=== PATIENT | male | born 1955 | race Two or more races ===

== ENCOUNTER 2017-10-04 16:03 | Inpatient (IN) | payer OTHER ==
[~2017-10-04] VITALS: Ht 165.1 cm; Wt 97.5 kg
[2017-10-04] MEDS ORDERED: SODIUM CHLORIDE 0.9% 1,000ML IVBOLUS ONE (17:00)
[2017-10-04] MEDS ORDERED: ASPIRIN 81 MG TABLET CHEW PO ONE (17:00)
[2017-10-04] MEDS ORDERED: MORPHINE SULFATE 4 MG/ML, 1ML IVPush PRN (17:00)
[2017-10-04] MEDS ORDERED: SODIUM CHLORIDE FLUSH 10ML SYR IVF ONE (17:00)
[2017-10-04] MEDS ORDERED: NITROGLYCERIN SINGLE TAB 0.4 MG SL ONE (17:10)
[2017-10-04] MEDS ORDERED: morphine SULFATE 10 MG/ML, 1ML ONE (17:10)
[2017-10-04 17:14] LABS: HEMATOCRIT 43.5 % (39.2-51.8); HEMOGLOBIN 14.6 g/dL (13.7-18.0); WHITE BLOOD COUNT 5.2 x10^3/uL (3.4-10)
[2017-10-04 17:25] LABS: ASPARTATE AMINO TRANSFERASE 26 U/L (15-37); BLOOD UREA NITROGEN 13 mg/dL (7-18)
[2017-10-04] MEDS: NITROGLYCERIN SINGLE TAB 0.4 MG SL PRN ×3 (17:26→17:36)
[2017-10-04] MEDS ORDERED: ASPI-496 PO (17:29)
[2017-10-04] MEDS ORDERED: LISI-170 PO (17:29)
[2017-10-04 17:30] LABS: IS PT STATUS REG ER OR PRE ER? YES
[2017-10-04] MEDS ORDERED: BISACODYL 10 MG SUPP PR PRN (19:00)
[2017-10-04] MEDS ORDERED: morphine SULFATE 10 MG/ML, 1ML IVPush PRN (19:00)
[2017-10-04] MEDS ORDERED: ONDANSETRON 2MG/ML, 2ML IVPush PRN (19:00)
[2017-10-04] MEDS ORDERED: POLYETHYLENE GLYCOL 17 GM PACKET PO PRN (19:00)
[2017-10-04] MEDS ORDERED: hydrALAzine 20 MG/ML, 1ML IVPush PRN (19:00)
[2017-10-04] MEDS ORDERED: NITROGLYCERIN 0.4 MG BOTTLE (25 TABS) SL PRN (19:00)
[2017-10-04] MEDS ORDERED: ACETAMINOPHEN 325 MG TABLET PO PRN (19:00)
[2017-10-04 19:22] VITALS: BP 134/71
[2017-10-04 20:00] VITALS: BP_SYST 130; BP_SYST 134; BP_DIAS 71; BP_DIAS 88
[2017-10-04] MEDS: LISINOPRIL 20 MG TABLET PO SCH (20:33)
[2017-10-04] MEDS: HEPARIN 5,000 UNITS/ML, 1ML SQ SCH (20:34)
[2017-10-04] MEDS: SODIUM CHLORIDE FLUSH 10ML SYR IVF SCH (20:35)
[2017-10-04 23:42] LABS: IS PT STATUS REG ER OR PRE ER? NO
[2017-10-05 02:33] VITALS: BP 158/96
[2017-10-05 05:21] LABS: HEMATOCRIT 40.2 % (39.2-51.8); HEMOGLOBIN 13.7 g/dL (13.7-18.0); WHITE BLOOD COUNT 5.7 x10^3/uL (3.4-10)
[2017-10-05 05:35] LABS: BLOOD UREA NITROGEN 13 mg/dL (7-18)
[2017-10-05 05:41] LABS: ASPARTATE AMINO TRANSFERASE 19 U/L (15-37)
[2017-10-05 05:44] LABS: IS PT STATUS REG ER OR PRE ER? NO
[2017-10-05] MEDS ORDERED: ASPIRIN 325 MG TABLET EC PO SCH (06:00)
[2017-10-05] MEDS ORDERED: ASPIRIN 81 MG TABLET EC ONE (06:11)
[2017-10-05] MEDS: HEPARIN 5,000 UNITS/ML, 1ML SQ SCH ×2 (06:14→14:35)
[2017-10-05 07:07] VITALS: BP 167/93
[2017-10-05] MEDS ORDERED: REGADENOSON 0.4 MG/5 ML SYRINGE ONE (08:29)
[2017-10-05] MEDS ORDERED: LISINOPRIL 10 MG TABLET ONE (08:59)
[2017-10-05] MEDS ORDERED: SENNA/DOCUSATE TABLET PO SCH (09:00)
[2017-10-05] MEDS: LISINOPRIL 20 MG TABLET PO SCH (09:01)
[2017-10-05] MEDS: SODIUM CHLORIDE FLUSH 10ML SYR IVF SCH (09:01)
[2017-10-05 11:00] VITALS: BP 154/86
[2017-10-05] MEDS ORDERED: LISI-170 PO (13:53)
[2017-10-05 15:00] VITALS: BP 151/87
[2017-10-05] MEDS ORDERED: FLU VACC QS2017-18 (36MOS+) UP/PF 0.5 ML IM-VACC ONE (16:00)
== END 2017-10-05 17:06 | disposition home or self-care (01) | DRG 313 ==
LOC: ED 17:41 → EDIP 17:48 → 5SO 19:05
PROVIDERS: ADMIT Internal Medicine; ATTEND Internal Medicine
DX: R07.89 Other chest pain (principal); I10 Essential (primary) hypertension; I45.10 Unspecified right bundle-branch block; I16.0 Hypertensive urgency; Z79.82 Long term (current) use of aspirin; Z82.49 Family history of ischemic heart disease and other diseases of the circulatory system
CPT/HCPCS: 36415; 71010; 78452; 80053; 80061; 83605; 84439; 84443; 84484; 85025; 85379; 90686; 93005; 93017; 96360; J1644; J2785; A9502; C9898; J7030